=== PATIENT | male | born 1930 | race Caucasian/White ===

== ENCOUNTER 2017-08-30 18:25 | Emergency (ER) | payer OTHER, MEDICARE ==
[~2017-08-30] VITALS: Ht 177.8 cm; Wt 72.6 kg
[~2017-08-30 18:25] MED LIST: ACETAMINOPHEN-1 EAC1 PO; FLOMAX; PREVACID DIS; SIMVASTATIN
[2017-08-30] MEDS ORDERED: LIDODERM1 EACH TRANSDERM (20:02)
[2017-08-30] MEDS ORDERED: NORCO 5-325 TA1 EACH PO (20:02)
[2017-08-30 20:39] VITALS: BP 120/66
== END 2017-08-30 20:40 | disposition home or self-care (01) ==
LOC: ER 18:25
DX: S20.212A Contusion of left front wall of thorax, initial encounter (principal); Z87.442 Personal history of urinary calculi; Z98.890 Other specified postprocedural states; Z87.11 Personal history of peptic ulcer disease; F10.99 Alcohol use, unspecified with unspecified alcohol-induced disorder; Z88.6 Allergy status to analgesic agent; W18.09XA Striking against other object with subsequent fall, initial encounter; Y93.89 Activity, other specified; Y92.096 Garden or yard of other non-institutional residence as the place of occurrence of the external cause; Y99.8 Other external cause status

== ENCOUNTER 2018-02-20 14:27 | Inpatient (IN) | payer OTHER, MEDICARE ==
[~2018-02-20] VITALS: Ht 175.3 cm; Wt 76.2 kg
--- NOTE | ~2018-02-20 | HC ---
[facility] [place] [address] [place] [address] CONSULTATION Name: CHRISTIANOIRINEO Estrella Room #: 222-P [facility] IN M.R.#: [id number] Admission: 02/20/18 Attend Phys: Abelino Sloan Discharge: 02/25/18 Date of : 30 Report #: [id number] THIS REPORT FOR: //name// CC: Juan Sloan DATE OF SERVICE: 02/21/2018 HISTORY OF PRESENT ILLNESS: This is an 87-year-old male patient who was seen by me because he became weak in the right lower extremity. He had difficulty walking and history is not very clear, but probably happened a couple of days ago and he even fell down. He said he is improving. The weakness was moderately severe. It happened spontaneously without trauma, but trauma occurred because of that. He denied any headache with it. REVIEW OF SYSTEMS: Indicate that he had some tremor. He goes to [place] for that. He was put on some medication and he does not know the name of the medication. I do not see any tremor medication when he is here. We need to look for that whenever we can find that. He does have some history of constipation, but no well-defined history whether the patient's tremor is because of Parkinson disease or essential tremor. He does walk with a walker and in fact, he is becoming better from the condition. He had a hiatus hernia, hemorrhoidectomy, bleeding ulcer, kidney stones, tonsillectomy, but he indicates his memory is not affected. I carried out the 14-point review of systems and he indicates that he is not having any new eye, ENT, cardiac, respiratory, GI, , constitutional, dermatological, hematological, psychiatric, throat, allergic, endocrine symptom associated with present symptomatology. PAST MEDICAL HISTORY: Positive for tremor. FAMILY HISTORY: Negative for early age stroke. SOCIAL HISTORY: He does not smoke. PHYSICAL EXAMINATION: VITAL SIGNS: Blood pressure is 135/88, respirations 18, pulse is 78, temperature is 97.1. NEUROLOGIC: Indicates he is alert, responsive. His speech, concentration, fund of knowledge and memory is at his baseline. He does indicate that his memory was slightly affected when it happened. His cranial nerve examination 2-12 looks unremarkable, but he is weak in both lower extremities, more so on the right than left. I am not sure about weakness in the right upper extremity. His position sense is intact. His reflexes are diminished. His tone is symmetrical. He has no cerebellar sign. I could not look at the fundus very well. HEENT: He is reasonably well-developed individual who does not have any [address] [address] CONSULTATION Name: IRINEO ALVARADO Room #: 222-P [facility] IN M.R.#: [id number] Admission: 02/20/18 Attend Phys: Abelino Sloan Discharge: 02/25/18 Date of : 30 Report #: [id number] dysmorphic features of eyes, ears and face. His vision and hearing looks adequate. EXTREMITIES: His pulses, I believe is palpable, but he has no edema, cyanosis or jaundice. CARDIOVASCULAR: Cardiac examinations appear mostly unremarkable. LUNGS: There is no respiratory difficulty or rhonchi on either side. LABORATORY DATA: His white count is 5.6. His sodium is normal. His TSH is slightly abnormal. He did have an MRI of the lumbar spine and a CT scan and those were reviewed. This showed some changes, but nothing, which can explain the patient's symptom. IMPRESSION: It is not clear what the etiology of the patient's weakness on the right lower extremity is. I think it needs to be further worked up. That is especially true because the patient gives poorly defined history that he may have had some speech difficulty with it. I think we need to look at higher up in the spine in the thoracic area and we also need to look at the brain to make sure he did not have any anterior spinal artery infarct or infarct in general. I discussed all of it with the patient and I discussed with him the workup we would like to do. He should work with therapy. RECOMMENDATION: 1. MRI of the brain. 2. MRI of the thoracic spine. 3. I will go ahead and do the carotid Doppler because of the weakness on the right side and the fact he did complain of some speech difficulty. 4. PT, OT. 5. Rest of the workup will depend upon the outcome of this testing and how aggressive he wants to be in further evaluation. I will discuss all of it with him tomorrow. Thank you very much for this referral. <ELECTRONICALLY SIGNED> By: Pelon Taveras MD 03/05/18 [id number] 20 Pelon Taveras MD /nt
--- NOTE | ~2018-02-20 | EKG ---
[address] [place] [address] ELECTROCARDIOGRAM REPORT Name: IRINEO ALVARADO Room #: 430-P [facility] IN M.R.#: [id number] Admission: 02/20/18 Attend Phys: Abelino Sloan Discharge: Date of : 30 Report #: [id number] THIS REPORT FOR: //name// [facility] ED Test Date: 2018-02-20 Test Time: 15:53:01 Pat Name: IRINEO ALVARADO Department: Room: 430 Gender: M Electrician Front: MZOOK : 1930 Requested By: Fawad Marquez Order Number: [id number] MD: Rk Galvin Measurements Intervals [place] Rate: 53 P: 76 [place]: 189 QRS: -25 QRSD: 91 T: 23 QT: 464 QTc: 436 Interpretive Statements Sinus rhythm Borderline left axis deviation Compared to ECG 09/08/2011 19:46:39 No significant change was found Electronically Signed On 02-21-2018 8:23:33 CDT by Rk Galvin [email or web address] <ELECTRONICALLY SIGNED> By: Rk Galvin MD, [facility] 02/21/18 0823 [id number] 155 Rk Galvin MD, [facility] /EPI
[~2018-02-20 14:27] MED LIST changes: +LIDODERM1 EACH TRANSDERM; +MIRALAX17 GM PO; +NORCO 5-325 TA1 EACH PO; -SIMVASTATIN; +ZOCOR40 MG PO
[2018-02-20 14:31] VITALS: BP 154/87
[2018-02-20 14:49] LABS: ABSOLUTE NEUTROPHILS 2.7 thou/uL (1.4-8.2); BASOPHILS 1.1 % (0.0-2.0); HEMOGLOBIN 13.4 gm/dL (14.0-18.0); MCV 94.5 fL (80.0-100.0)
[2018-02-20 14:50] LABS: EOSINOPHILS 0.6 % (0.0-3.0); HEMATOCRIT 39.5 % (42.0-52.0); LYMPHOCYTES 40.9 % (24.0-44.0); MCH 32.1 pg (26.0-34.0); MONOCYTES 9.2 % (1.0-8.0); PLATELET COUNT 166 thou/uL (150-400); POLYS 48.2 % (36.0-66.0); RBC 4.18 mil/uL (4.50-6.00); WBC 5.6 thou/uL (4.0-11.0)
[2018-02-20 15:00] LABS: ANION GAP 8 mmol/L (7-16); BUN 20 mg/dL (7-18); CALCIUM 9.4 mg/dL (8.5-10.1); CHLORIDE 105 mmol/L (98-107); CO2 27 mmol/L (21-32); CREATININE 0.8 mg/dL (0.7-1.3); GLUCOSE 108 mg/dL (74-106); SODIUM 140 mmol/L (136-145)
[2018-02-20 15:04] LABS: APTT 27.2 Seconds (24.5-32.8); INR 1.1; PROTIME 10.9 Seconds (9.3-11.4)
[2018-02-20 15:09] LABS: ALBUMIN 3.9 g/dL (3.4-5.0); SGOT 19 U/L (15-37); SGPT 20 U/L (30-65); TOTAL BILIRUBIN 0.6 mg/dL (<0.1-1.0); TROPONIN-I < 0.04 ng/mL (<0.06)
[2018-02-20 16:29] LABS: URINE BILIRUBIN NEGATIVE (Negative); URINE BLOOD NEGATIVE (Negative); URINE CLARITY SL CLOUDY; URINE COLOR YELLOW; URINE GLUCOSE-RANDOM* NEGATIVE (Negative); URINE KETONES TRACE (Negative); URINE LEUKOCYTES-REFLEX NEGATIVE (Negative); URINE NITRITE-REFLEX NEGATIVE (Negative); URINE PROTEIN (DIPSTICK) NEGATIVE (Negative); URINE UROBILINOGEN 0.2 E.U./dl (0.2-1.0)
[2018-02-20 16:36] LABS: AMP/METHAMP Negative (Negative); BARBITURATES POSITIVE (Negative); BENZODIAZEPINES Negative (Negative); COCAINE Negative (Negative); METHADONE Negative (Negative); OPIATES Negative (Negative); PCP Negative (Negative)
[2018-02-20 17:28] VITALS: BP 105/59
[2018-02-20 17:35] VITALS: BP 118/61
[2018-02-20 20:30] VITALS: BP 135/75
[2018-02-21 04:30] VITALS: BP 111/65
[2018-02-21 08:18] VITALS: BP 128/71
[2018-02-21 09:25] LABS: CHOLESTEROL 184 mg/dL (<200); HDL CHOLESTEROL 105 mg/dL (>40); LDL CHOLESTEROL 70 mg/dL (<100); TC:HDL 1.8 Ratio (Not establshd); TRIGLYCERIDE 45 mg/dL (<150); VLDL 9 mg/dL (<40)
[2018-02-21 16:14] VITALS: BP 135/88
[2018-02-21 20:21] VITALS: BP 124/53
[2018-02-22 03:39] VITALS: BP 128/64
[2018-02-22 05:47] LABS: ALBUMIN 3.1 g/dL (3.4-5.0); CALCIUM 8.7 mg/dL (8.5-10.1); CREATININE 0.9 mg/dL (0.7-1.3); PHOSPHORUS 3.3 mg/dL (2.5-4.9); POTASSIUM 4.2 mmol/L (3.5-5.1)
[2018-02-22 07:08] VITALS: BP 132/67
[2018-02-22 15:37] VITALS: BP 111/52
[2018-02-22] MEDS ORDERED: FLOMAX0.4 MG PO (18:17)
[2018-02-22] MEDS ORDERED: PRIMIDONE50 MG PO (18:18)
[2018-02-22] MEDS ORDERED: CENTRUM SILVER1 EAC2 PO (18:18)
[2018-02-22 20:29] VITALS: BP 128/59
[2018-02-23 04:54] VITALS: BP 130/72
[2018-02-23 07:30] VITALS: BP 129/67
[2018-02-23] MEDS ORDERED: ACETAMINOPHEN325 M1 PO (09:51)
[2018-02-23] MEDS ORDERED: SYNTHROID50 MCG PO (09:51)
[2018-02-23 16:15] VITALS: BP 118/59
[2018-02-23 20:39] VITALS: BP 130/66
[2018-02-24 06:00] VITALS: BP 127/71
[2018-02-24 09:08] VITALS: BP 117/58
[2018-02-24 15:12] VITALS: BP 120/60
[2018-02-24 20:00] VITALS: BP 118/55
[2018-02-25 07:47] VITALS: BP 125/66
== END 2018-02-25 14:00 | DRG 92 ==
LOC: ER 14:27 → 4E 15:48 → EROBS 15:48 → 4E 17:29 → SICU 02-24 19:43
PROVIDERS: Emergency Medicine; Hospitalist; Registered Nurse
PROC: 02HV33Z Insertion of Infusion Device into Superior Vena Cava, Percutaneous Approach (ICD-10-PCS; principal; 2018-02-20)
DX: G83.10 Monoplegia of lower limb affecting unspecified side (principal); E44.1 Mild protein-calorie malnutrition; M19.90 Unspecified osteoarthritis, unspecified site; I73.9 Peripheral vascular disease, unspecified; G20 Parkinson's disease; K59.09 Other constipation; Z90.49 Acquired absence of other specified parts of digestive tract; Z87.442 Personal history of urinary calculi; Z88.6 Allergy status to analgesic agent; Z68.24 Body mass index [BMI] 24.0-24.9, adult
CPT/HCPCS: 10783; 15001

== ENCOUNTER 2018-04-24 10:15 | Emergency (ER) | payer OTHER, MEDICARE ==
[~2018-04-24] VITALS: Ht 177.8 cm; Wt 61.2 kg
[~2018-04-24 10:15] MED LIST changes: +ACETAMINOPHEN325 M1 PO; +CENTRUM SILVER1 EAC2 PO; +FLOMAX0.4 MG PO; +PRIMIDONE50 MG PO; +SYNTHROID50 MCG PO
[2018-04-24 10:19] VITALS: BP 115/48
[2018-04-24] MEDS ORDERED: HYDROCODONE-AP1 EAC6 PO (11:04)
== END 2018-04-24 11:20 | disposition home or self-care (01) ==
LOC: ER 10:15
DX: S92.352A Displaced fracture of fifth metatarsal bone, left foot, initial encounter for closed fracture (principal); Z88.6 Allergy status to analgesic agent; W07.XXXA Fall from chair, initial encounter; Y93.89 Activity, other specified; Y92.89 Other specified places as the place of occurrence of the external cause; Y99.8 Other external cause status